=== PATIENT | male | born 1985 | race Caucasian/White ===

== ENCOUNTER 2017-04-14 16:31 | Emergency (ER) | payer BC, OTHER ==
[2017-04-14] MEDS ORDERED: KETOROLAC TROMETHAMINE 60 MG/2 ML VIAL IM ONE ×2 (17:41→17:44)
[2017-04-14] MEDS ORDERED: ORPHENADRINE CITRATE 30 MG/ML VIAL IM ONE (17:42)
[2017-04-14] MEDS ORDERED: ORPHENADRINE CITRATE 30 MG/ML VIAL ONE (17:44)
--- NOTE | 2017-04-14 17:46 | ERNOTE ---
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 By this AM back was very stiff and very sore. Gradually increased stiffness and pain with movement. Was told to see his PCP. Came to walk in clinic they refused to see him. He came to ED. Denies any paresthesia or pain radiation. Timing: Reports: constant Quality/Severity: Reports: moderate Location of pain: Reports: mid back, lower back Recent Injury?: Reports: yes - fall retraining prisoner Modifying Factors - (Improves): Reports: nothing Modifying Factors - (Worsens): Reports: movement flexion Review of Systems - Review of Systems Musculoskeletal: Present: See HPI All Other Systems: All systems neg except as marked - Patient's Past Medical History Patient History - Medical: Arthritis, Chronic Pain, Other Patient History - Cardiac/Respiratory: No pertinent hx Patient History - Cancer: No Hx of Cancer Patient History - Surgical Procedures: No surgical history Patient History - Other: None - Social History Living Situations: home Psych History: No pertinent hx Do you dip or chew tobacco: Yes Alcohol Use: occasionally - Immunizations Immunizations Up to Date: Yes Hx Pneumococcal Vaccination: No History of Influenza Vaccine: No Physical Exam - Physical Exam General Appearance: Present: wd/wn, alert, moderate distress, other - Very slow and deliberate movement holding and guarding his back Eye Exam: PERRL: bilateral, EOMI: bilateral Ears, Nose, Throat: Present: normal ENT inspection Neck: Present: normal inspection, nontender Respiratory: Present: no respiratory distress Cardiovascular/Chest: Present: regular rate, rhythm, no murmur Gastrointestinal/Abdominal: Present: nontender, soft Back Exam: Present: no CVA tenderness, no vertebral tenderness, muscle spasm Extremity Exam: Present: normal inspection, normal range of motion Neurological Exam: Present: no motor/sensory deficits ED Progress - Vital Signs Vital Signs: Vital Signs 04/14/17 16:47 Pulse Rate 60 Respiratory 17 Rate Blood Pressure 128/56 O2 Sat by Pulse 98 Oximetry - Progress/Reassessment Chief Complaint: Back Pain Plan - Plan Plan: Use flexeril as directed Alternate ibuprofen 600 mg every 3 hours with tylenol 650 mg Use flexeril as directed Follow up with PCP or workers comp physician Departure Clinical Impression: Lumbar strain, Spasm of muscle, back - Departure Disposition: Home self-care Condition: Good Instructions: Muscle Strain, [id number] Additional Instructions: Use ibuprofen 600 mg alternating every 3 hours with tylenol 650 mg Use flexeril as directed Use cool/warm compresses Follow up with PCP Prescriptions: Cyclobenzaprine HCl [Flexeril] 10 mg PO TID PRN #30 tab PRN Reason: MUSCLE SPASMS
[2017-04-14 18:23] VITALS: BP 117/63
== END 2017-04-14 18:23 | disposition home or self-care (01) ==
LOC: ER 16:31
DX: S39.012A Strain of muscle, fascia and tendon of lower back, initial encounter (principal); Y35.813A Legal intervention involving manhandling, suspect injured, initial encounter; Y93.9 Activity, unspecified; Y92.149 Unspecified place in prison as the place of occurrence of the external cause; Y99.0 Civilian activity done for income or pay; M62.830 Muscle spasm of back